=== PATIENT | male | born 1960 ===

== ENCOUNTER 2022-02-12 13:51 | Outpatient (REF) | payer MEDICAID, SELFPAY ==
--- NOTE | ~2022-02-12 | XR_ITS ---
EXAMINATION: RIGHT SHOULDER AND HUMERUS X-RAY CLINICAL INFORMATION: Pain COMPARISON: None TECHNIQUE: 3 views of the right shoulder and 2 views of the right humerus FINDINGS: There is fracture deformity of the right proximal humerus involving the humeral neck and greater tuberosity. The fracture does not appear acute. There is heterogeneous attenuation of the humeral head. This may represent osteopenia. The humeral head is low with respect to the glenoid probably secondary to joint effusion. 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 No other fracture or dislocation is seen. The more distal humerus is normal appearing. The right elbow joint is not well evaluated. Soft tissues are normal. XR/XR shoulder RT min 2V IMPRESSION: Probable old trauma to the right proximal humerus. Heterogeneous attenuation of the humeral head question representing osteopenia. Low position of the humeral head with respect to the glenoid likely related to a joint effusion. Otherwise normal right humerus. Right elbow joint is not well visualized.
--- NOTE | ~2022-02-12 | XR_ITS ---
EXAMINATION: RIGHT SHOULDER AND HUMERUS X-RAY CLINICAL INFORMATION: Pain COMPARISON: None TECHNIQUE: 3 views of the right shoulder and 2 views of the right humerus FINDINGS: There is fracture deformity of the right proximal humerus involving the humeral neck and greater tuberosity. The fracture does not appear acute. There is heterogeneous attenuation of the humeral head. This may represent osteopenia. The humeral head is low with respect to the glenoid probably secondary to joint effusion. 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 No other fracture or dislocation is seen. The more distal humerus is normal appearing. The right elbow joint is not well evaluated. Soft tissues are normal. XR/XR humerus RT IMPRESSION: Probable old trauma to the right proximal humerus. Heterogeneous attenuation of the humeral head question representing osteopenia. Low position of the humeral head with respect to the glenoid likely related to a joint effusion. Otherwise normal right humerus. Right elbow joint is not well visualized.
== END 2022-02-12 13:52 | disposition home or self-care (01) ==
LOC: HO.HOSX 13:51
PROVIDERS: PCP Nurse Practitioner Primary Care; Visit Provider Physician Assistant
DX: M62.511 Muscle wasting and atrophy, not elsewhere classified, right shoulder (principal); S42.201D Unspecified fracture of upper end of right humerus, subsequent encounter for fracture with routine healing
CPT/HCPCS: 73030; 73060; 99202

== ENCOUNTER 2024-05-21 16:26 | Outpatient (REF) | payer MEDICARE, MEDICAID, SELFPAY ==
[2024-05-21 17:27] LABS: Microalbum/Creatinine Ratio Ur 8.9 ug/mg cr (<30)
== END 2024-05-21 16:27 | disposition home or self-care (01) ==
LOC: HO.HHCLNP 16:26
PROVIDERS: Visit Provider Nurse Practitioner Primary Care
DX: I10 Essential (primary) hypertension (principal)
CPT/HCPCS: 82043; 82570